=== PATIENT | male | born 1940 | race Caucasian/White ===

== ENCOUNTER → 2018-03-22 | Outpatient (CLI) | payer MEDICARE ==
--- NOTE | 2018-03-22 12:30 | RADIOLOGY REPORT (SQ) ---
EXAM DESCRIPTION: MRI CERVICAL SPINE COMBO COMPLETED DATE/TIME: 03/22/2018 11:51 am REASON FOR STUDY: M54.2 CERVICALGIA M54.2 CERVICALGIA COMPARISON: Cervical spine plain films 03/19/2018 TECHNIQUE: Sagittal and Axial imaging includes T1, T2, STIR and gradient echo sequences. T1 post nam olinium sequences. CONTRAST TYPE AND DOSE: 15 mL Multihance. RENAL FUNCTION: GFR estimated at 47 LIMITATIONS: None. FINDINGS: ALIGNMENT: Straightening of cervical curvature. Minimal anterolisthesis of C2 over C3, an d C3 over C4. VERTEBRAE: Intact. BONE MARROW: Normal. No marrow replacement or reactive changes. DISCS: Diffuse decreased T2 weighted intervertebral disc signal. Disc space loss of height from C3-4 through C5-6. HARDWARE: None in the spine. CORD AND BASE OF BRAIN: There is cord flattening from central canal stenosis at C4-5. No abnormal in trinsic cord signal or enhancement worrisome for edema or myelomalacia. SOFT TISSUES: No soft tissue masses. C1-C2: No significant spinal stenosis. C2-C3: No significant spinal stenosis or exit foraminal stenosis. C3-C4: Broad diffuse posterior disc bulge and bony spurring partially effaces the ventral thecal sac and abuts the ventral cord without cord flattening. Borderline central canal stenosis. High-grade b ilateral foraminal narrowing at C3-4. C4-C5: Mild to moderate central canal stenosis at C4-5 results from broad diffuse posterior disc bulg e and bony spurring and mild ligamentum flavum thickening. There is effacement of the CSF around the cervical cord and mild cord flattening without abnormal intrinsic cord signal or enhancement to sugg est myelomalacia or cord edema. High-grade bilateral foraminal narrowing. C5-C6: Mild posterior disc bulge and bony spurring is present without central canal narrowing. High- grade left, moderate to high-grade right foraminal narrowing from facet and uncovertebral hypertrophy . C6-C7: Asymmetric posterior rightward disc bulge and bony spurring is present without central stenosi s. High-grade right foraminal narrowing, mild left foraminal narrowing C7-T1: Bulky bilateral facet hypertrophy without significant central or foraminal encroachment UPPER THORACIC: Incompletely imaged. No significant spinal stenosis or exit foraminal stenosis. ENHANCEMENT: No abnormal cervical cord or cervical nerve root enhancement. OTHER: No other significant finding. IMPRESSION: Degenerative disc changes most pronounced at C4-5 with central canal narrowing and bilat eral high-grade foraminal stenosis COMMENT: None. TECHNICAL DOCUMENTATION: JOB ID: [id number] [employer]- All Rights Reserved Reading location - IP/workstation name: [facility]
== END ==
LOC: RAD 10:42
PROVIDERS: ATTEND Internal Medicine
DX: M50.321 Other cervical disc degeneration at C4-C5 level (principal); M48.02 Spinal stenosis, cervical region
CPT/HCPCS: 82565; 72156; A9577